=== PATIENT | male | born 1970 ===

== ENCOUNTER → 2016-09-25 | Outpatient (CLI) | payer SELFPAY | LOC: COL.LAB 19:37 | DX: R22.1 Localized swelling, mass and lump, neck (principal) ==

== ENCOUNTER → 2016-10-25 | Outpatient (CLI) | payer SELFPAY | LOC: ZCOL.LAB 15:18 | DX: R22.1 Localized swelling, mass and lump, neck (principal) ==

== ENCOUNTER 2021-07-04 11:40 | Day surgery (SDC) | payer OTHER ==
[~2021-07-04] VITALS: Ht 180.3 cm; Wt 81.8 kg
[~2021-07-04 11:40] MED LIST: IBU600 MG PO
[2021-07-04 13:28] VITALS: BP 117/73; PULSE 65; TEMP 97.3
[2021-07-04] MEDS ORDERED: NORCO 325 MG-51 TAB PO (15:05)
[2021-07-04 15:40] VITALS: BP 141/88; PULSE 72; TEMP 97.9
--- NOTE | 2021-07-04 15:40 | NUR ---
Pt returned via cart to [facility]. present in room. Pt A&O. VSS-see flowsheet. Given iced tea and ice cream per request. X3 lap sites covered in small bandaids intact to abdomen. No drainage noted. Side rails up, call light placed in reach.
[2021-07-04 15:45] VITALS: BP 129/88; PULSE 71
[2021-07-04 16:00] VITALS: BP 121/85; PULSE 71
--- NOTE | 2021-07-04 16:25 | NUR ---
Pt tolerated oral intake. VS remain stable. Pt up to ambulate in hallway with ELOISA. Steady gait and no complaints. Up to bathroom to attempt to void.
--- NOTE | 2021-07-04 16:46 | NUR ---
Pt able to void without difficulty. Dressings remain c/d/i (bandaids) to abdomen. Pt dressing. Discharge teaching completed, pt and pts verbalized understanding. IV removed with pressure dressing applied.
--- NOTE | 2021-07-04 16:57 | NUR ---
Pt taken via wheelchair to private vehicle for dc home with to drive.
== END 2021-07-04 16:58 | disposition home or self-care (01) ==
LOC: SDCO 11:40
DX: K40.90 Unilateral inguinal hernia, without obstruction or gangrene, not specified as recurrent (principal); F17.210 Nicotine dependence, cigarettes, uncomplicated
CPT/HCPCS: C1781; J0690; J1100; J1885; J2405; J2704; J3010